=== PATIENT | male | born 1965 | race Caucasian/White ===

== ENCOUNTER 2016-08-18 12:59 | Emergency (ER) | payer OTHER ==
[~2016-08-18] VITALS: Ht 195.6 cm; Wt 96.3 kg
[2016-08-18 13:17] VITALS: TEMP 36.6; Ht 195.6 cm; Wt 96.3 kg
[2016-08-18] MEDS ORDERED: PANT40TA PO (13:26)
--- NOTE | 2016-08-18 15:11 | DIAGNOSTIC IMAGING REPORT ---
RIGHT LOWER EXTREMITY VENOUS DOPPLER CLINICAL HISTORY: Right lower extremity pain and swelling. COMPARISON STUDY: No previous studies for comparison. TECHNIQUE: Sonography of the deep venous system of the right lower extremity was performed. Compression and augmentation were evaluated. FINDINGS: The right common femoral, superficial femoral and popliteal veins were compressible. Augmentation was normal. Flow was shown within the deep calf vessels. Note is made of a elongated 16.2 x 1.5 x 3.3 cm right popliteal fluid collection which extends into the right calf. IMPRESSION: 1. No evidence of deep venous thrombus within the right lower extremity. 2. 16.2 x 1.5 x 3.3 cm elongated right popliteal fluid collection which extends into the right calf. The sonographic appearance favors a ruptured popliteal cyst. A hematoma could appear similar. Electronically signed by: Jac Herrera M.D. 08/18/2016 3:10 PM Dictated Date/Time: 08/18/2016 3:09 PM
[2016-08-18 15:43] VITALS: BP 146/93; PULSE 82; O2SAT 94
--- NOTE | 2016-08-18 21:47 | EMERGENCY ROOM VISIT NOTE ---
ED Visit Note First contact with patient: 13:29 Chief Complaint: Right leg and knee pain and swelling. History of Present Illness: Mr. Garcia is a 51-year-old white male who ambulates into the ED accompanied by his complaining of right leg and right knee pain associated with swelling. Patient reports his symptoms started approximately one week ago after he was repairing a roof. He denies there was any trauma at that time but noted that when he came down from the roof he started having posterior leg pain and noted swelling in the knee. Since that time his symptoms have waxed and waned in intensity. He was seen at a local urgent care center and was referred to the ED for a Doppler ultrasound to evaluate for DVT. Currently he is complaining of posterior leg pain. He feels the pain starts in the popliteal area and intermittently radiates superior and inferior to the knee. Currently he rates his discomfort 6/10 but does report its been more severe. His discomfort worsens when he completely extends his knee and when he flexes his knee beyond 90. Additionally he reports he feels much better in the morning after sleeping and then has noticed a gradual increase in pain throughout the day when he is active. He has not taken any medication for pain prior to arrival at the hospital. Associated with his pain he reports he has noted swelling over the posterior knee and the anterior portion of the knee. Once again the swelling seems to wax and wane paste on the level of his activity. He denies any associated fevers, chills, sweats, skin eruptions, skin color changes, back pain, hip pain, previous significant injuries or surgeries to the knee, ankle pain, leg weakness/numbness/tingling. Review of Systems: As noted above in history of present illness. 8 body systems were reviewed and found to be negative as noted above. Past Medical History: GERD, status post tonsillectomy. Current Medications: Protonix. Allergies to Medications: Patient denies. Social History: Patient is currently employed; he feels safe in his home environment; he admits to alcohol use and denies tobacco use. Physical Examination: Vital Signs: Date Time Temp Pulse Resp B/P Pulse Ox O2 Delivery O2 Flow Rate FiO2 08/18/16 15:43 82 16 146/93 94 Room Air 08/18/16 13:17 36.6 80 20 132/86 95 Room Air GENERAL: 51-year-old female in mild distress due to pain, nontoxic-appearing, afebrile and hemodynamically stable. NEUROLOGICAL: Awake, alert and oriented to person, place and time. Answering questions appropriately and following commands. SKIN: Warm, dry and pink. No soft tissue eruptions or trauma noted. RIGHT LOWER EXTREMITY: No gross bony deformity. No tenderness in the hip, proximal thigh, distal lower leg, ankle or foot. Mild tenderness over the posterior aspect of the distal thigh and proximal aspect of the distal lower leg. There is a fullness in the tissues in this area but I do not appreciate any erythema or warmth to this area. Additionally over the superior aspect just above the patella anteriorly there is some mild swelling but once again no erythema or warmth. No laxity of the collateral or cruciate ligaments. Decreased range of motion in flexion to less than 90 and he is not able to fully extend to 180. Positive bounce test. Negative patellar apprehension test. Negative ballottement test. Luci's test deferred. No tenderness to the ankle or foot. Distal pulses are intact and equal bilaterally. Capillary refill is brisk. He is able to distinguish light sensations through all dermatomes. ED Course: Patient is assessed as noted above. Patient was offered pain medication and refused. Right Leg Venous Doppler Ultrasound: Was reviewed by myself and the radiologist showing no deep vein thrombus but radiologist knows a 16.2 x 1.5 x 3.3 cm elongated right popliteal fluid collection consistent with a ruptured popliteal cyst; although a hematoma could have a similar appearance. Once again patient was offered pain medication and refused. Patient was offered immobilization and crutch use and refused. Patient was educated about tonight's findings and instructed on his treatment plan; he verbalizes understanding and agreement with this plan. Clinical Impression: Ruptured popliteal cyst. Decision-Making: Initially my differential diagnosis I considered popliteal cyst , DVT, muscle strain, ligamentous injury, septic arthritis and other causes. Disposition: Patient discharged home in stable condition accompanied by his ; prior to departure he was reassessed and reported he was feeling the same. Plan: Patient was encouraged to alternate ibuprofen and acetaminophen as needed for pain. Patient was encouraged use ice over the areas of pain and swelling 4-5 times a day for 20 minutes. Patient was encouraged to follow-up with refrigeration specialist for definitive care and treatment. Patient was encouraged return the ED for worsening/uncontrolled pain, uncontrolled swelling or any new/concerning symptoms.
== END 2016-08-18 15:57 | disposition home or self-care (01) ==
LOC: C.EDB 13:01 → C.EDC 15:57
DX: M66.0 Rupture of popliteal cyst (principal); K21.9 Gastro-esophageal reflux disease without esophagitis; Z79.899 Other long term (current) drug therapy